=== PATIENT | male | born 1975 | race Caucasian/White ===

== ENCOUNTER → 2019-02-26 05:33 | Day surgery (SDC) | payer OTHER ==
[~2019-02-26 05:33] MED LIST: Buffered Lidocaine 1% SYRIN* 1 ML/SYRINGE INTRADERM ONE; Bupivacaine 0.5%* 50 ML MDV VIAL ONE; Dexamethasone IV* 4 MG/ML 1 ML (4 MG) IV SLOW PU ONE; Dexamethasone IV* 4 MG/ML 1 ML (4 MG) ONE; DiMENhydriNATE IV* 50 MG/ML VIAL IV PUSH PRN; EPINEPHRINE 1 MG/ML 1 ML VIAL ONE; Famotidine IV* 10 MG/ML 2 ML (20 mg) IV ONE; Famotidine IV* 10 MG/ML 2 ML (20 mg) ONE; Glycopyrrolate IV* 0.2 MG/ML 1 ML VIAL ONE; HYDROcodone/ACETAMIN 5-325 MG* 1 TAB PO PRN; Ketorolac INJ* 30 MG/ML 1 ML VIAL ONE; Lactated Ringers 1000 ML Bag* 1,000 ML IV SCH; Lidocaine 2% PF * 5 ML VIAL ONE; Midazolam* 1 MG/ML 5 ML VIAL (5 MG) ONE; Naloxone* 0.4 MG/ML 1 ML VIAL IV PRN; Neostigmine Methylsulfate* 3 MG/3 ML SYRINGE ONE; Ondansetron INJ* 2 MG/ML VIAL ONE; Propofol* 10 MG/ML 20 ML BTL ONE; ROPIVACAINE 5 MG/ML 30 ML BTL (0.5%) ONE; Rocuronium* 10 MG/ML VIAL ONE; ceFAZolin 2 GM in NS PREMIX(*) 2 GM/100 ML BAG IVPB ONE; fentaNYL* 50 MCG/ML 2 ML VIAL (100 MCG VIAL) IV PRN; fentaNYL* 50 MCG/ML 2 ML VIAL (100 MCG VIAL) ONE; oxyCODONE/Acetamin 5/325 MG* TAB PO PRN
[2019-02-26 11:01] VITALS: BP 132/84
--- NOTE | 2019-02-27 17:31 | OP ---
OPERATIVE REPORT: DATE OF OPERATION: 02/26/19 DATE OF : 75 SURGEON: Dima Rodriguez MD [facility] [employer] OPERATOR: MICHAEL Brown A physician railways assistant was required for the length of the procedure for assistance with patient positi oning, retraction, instrumentation, and closure. ANESTHESIOLOGIST: Dr. Scottie Bynum. ANESTHESIA: General anesthesia, regional interscalene block anesthesia. PRE-OP DIAGNOSES: 1. Severe right shoulder acromioclavicular joint osteoarthritis. 2. Right shoulder subacromial impingement and bursitis. 3. Right shoulder rotator cuff supraspinatus, tendinopathy, possible tear. 4. Right shoulder possible biceps or superior labral tear. POST-OP DIAGNOSES: 1. Right shoulder severe acromioclavicular joint osteoarthritis. 2. Right shoulder subacromial impingement and bursitis. 3. Right shoulder rotator cuff tendinitis and partial-thickness rotator cuff tendon tear, supraspina tus. 4. Right shoulder superior labrum tear. OPERATIVE PROCEDURE: 1. Right shoulder arthroscopic rotator cuff tendon repair with Regeneten biologic patch. 2. Right shoulder arthroscopic subacromial decompression. 3. Right shoulder arthroscopic distal clavicle resection. 4. Right shoulder arthroscopic debridement superior labrum, posterior labrum and release of biceps l nancy head tendon. ANTIBIOTICS: Ancef 2 g IV. IV FLUIDS: See Anesthesia note. [id number] TIME: 53 minutes. SPECIMENS: None. IMPLANTS: [employer] Regeneten biologic patch, size large. ESTIMATED BLOOD LOSS: Minimal. COMPLICATIONS: None. 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 preoperative. The patient continued to have pain about the superior shoulder and elsewhere roxane ecially when lifting his 28-ydwoc-you child. The patient failed to respond to a full spectrum of non operative management and opted for surgery. His MRI showed severe AC joint osteoarthritis and subacr omial impingement along with supraspinatus tendinitis and partial-thickness tearing of the rotator cu ff, intrasubstance of supraspinatus and articular sided of infraspinatus. Discussed risks and potential complications of surgery with the patient and he opted to proceed forwa rd. Discussed possible treatment of biceps and superior labrum, which would be by biceps release or tenot suraj versus an open proximal biceps tenodesis. Discussed the pros and cons of each and the patient pr eferred a biceps release if any treatment was required. DESCRIPTION OF PROCEDURE: In preoperative holding, the patient signed a written consent. Operative extremity was marked in preoperative holding. The patient was taken back to the operating room and p laced supine on the operating room table. Sedated and intubated. The patient was converted to the lateral decubitus position. The right shoulder was placed up. Axil samira roll placed. All bony prominences padded. Longitudinal traction with 15 pounds with the approp riate amount of forward flexion and abduction of the shoulder. Right shoulder was prepped and draped . Formal surgical time-out performed. A spinal needle was entered into the glenohumeral joint from posterior and 30 cc of normal saline was introduced. I then established a posterior glenohumeral joint portal using standard technique. I started diagnostic arthroscopy. No significant injury noted to articular cartilage. No loose bodi es. There was clearly significant fraying about the superior labrum at the biceps anchor. There was some minimal fraying about the posterior labrum. There was some clear undersurface tearing of the s upraspinatus and infraspinatus. I established an anterior glenohumeral joint portal under direct visualization. Smoothed out superior labrum, reamed with shaver and then probed it. I found that there was an unstable tear and so decid ed to treat that with biceps release. I brought arthroscopic scissors in and released the biceps breezy r its origin. It retracted. The patient had some minimal fraying about the posterior labrum, which I debrided with the arthroscop ic shaver, smoothing out. Moved to rotator cuff. Clearly, some very minimal undersurface tearing. I smoothed that out with an arthroscopic shaver and noted more than 1 or 2 mm of undersurface footprint visualizable. Next to t he weakest component of the tendon undersurface, I placed a spinal needle to aleyda it when I moved sub acromial. Removed fluid and instruments from the glenohumeral joint and entered the subacromial space from ante rior and posterior. Established lateral subacromial portal. Debrided bursitic tissue with an arthro scopic shaver placed lateral. Identified location of spinal needle. Probed the rotator cuff with swi tching stick and arthroscopic probe and visualized it. No bursal sided tearing to the rotator cuff. I made a posterolateral portal for improved visualization. I performed a subacromial decompression u sing an arthroscopic chauncey, flattening out the undersurface of the anterior aspect of the acromion. At this point, I decided to do a rotator cuff biologic patch. This was because of the minimal unders urface tearing on the articular side of the rotator cuff. Given the patient's size and the involveme nt of both the supraspinatus and the infraspinatus, I chose to use a size large patch. I brought the patch in from lateral and fixed it in place with PLLA nayely. This was smooth. Patch was stable to movement and probing. I moved to the AC joint. Debrided synovitic tissue using a cautery device. I did a very aggressive removal of the distal clavicle at least 8 mm until there was a nice gap between acromion and clavicle . The pictures taken were especially nice. I again confirmed that the patch was firmly fixed. I rem iván instruments and fluid from subacromial space. After instruments and fluid were removed from subacromial space, I closed the skin incisions with fig [id number] and 12 stitches using nylon 3-0 suture. Dressing consisted of Xeroform, 4x4s, ABDs, and foam tape. Sling with abduction pillow applied. The patient was awakened, extubated, and transferr ed to the PACU. DISPOSITION: The patient was discharged home when medically stable. The patient will start physical therapy immediately according to the [facility] biologic [facility]. He will be in a sling for 2 to 3 weeks postoperatively. He will follow up with me in 10 to 14 days postoperatively. He will ta jordan Percocet as needed for pain control. [id number]/[facility] #: [id number]
== END | disposition home or self-care (01) ==
LOC: OR 05:33
PROVIDERS: ATTEND Orthopaedic Surgery
DX: S46.011A Strain of muscle(s) and tendon(s) of the rotator cuff of right shoulder, initial encounter (principal); S43.431A Superior glenoid labrum lesion of right shoulder, initial encounter; M75.51 Bursitis of right shoulder; M19.011 Primary osteoarthritis, right shoulder; M75.41 Impingement syndrome of right shoulder; X50.0XXA Overexertion from strenuous movement or load, initial encounter; Y92.9 Unspecified place or not applicable; G89.18 Other acute postprocedural pain; I10 Essential (primary) hypertension; K21.9 Gastro-esophageal reflux disease without esophagitis
CPT/HCPCS: C1713; J0690; J1100; J1885; J2250; J2405; J2704; J2710; J2795; J3010; J3490